=== PATIENT | female | born 1975 | race Two or more races ===

== ENCOUNTER 2020-12-13 03:45 | Emergency (ER) | payer BC ==
[~2020-12-13] VITALS: Ht 162.6 cm; Wt 90.9 kg
[2020-12-13] MEDS ORDERED: HYDR-2761 PO (04:29)
[2020-12-13] MEDS ORDERED: HYDROcodone/APAP 5/325MG 1 TAB TABLET PO ONE (04:30)
--- NOTE | 2020-12-13 04:30 | PHYS DOC ---
Past Medical History Past Medical History: No Pertinent History Past Surgical History: , Tubal ligation Smoking Status: Current Some Day Smoker Alcohol Use: None Drug Use: None General Adult EDM: Chief Complaint: LOWER EXT PAIN HPI: HPI: 45-year-old female presents with report of right lateral ankle pain that has been ongoing for the past 2 weeks. Patient reports she was working standing for approximately 8 hours tonight with significant increased in pain. Patient reports she thinks she "sprained her ankle" previously and symptoms have not improved because she has continued to work on it. Patient does report taking 400 mg of Advil at midnight without significant improvement. Patient reports she is able to bear weight. Denies numbness or tingling. Denies other injury. Review of Systems: Review of Systems: Constitutional: Denies fever or chills Eyes: Denies redness or eye pain HENT: Denies nasal congestion or sore throat Respiratory: Denies cough or shortness of breath Cardiovascular: Denies chest pain or palpitations GI: Denies abdominal pain, nausea, or vomiting : Denies dysuria or hematuria Musculoskeletal: Denies back pain; reports right lateral ankle pain and swelling Integument: Denies rash or skin lesions Neurologic: Denies headache, focal weakness or sensory changes Complete systems were reviewed and found to be within normal limits, except as documented in this note. Heart Score: C/O Chest Pain: N/A Current Medications: Current Medications Medications (Trade) Dose Ordered Sig/[facility] Start Time Stop Time Status Last Admin Dose Admin Acetaminophen/ Hydrocodone Bitart (Lortab 5/325) 1 tab 1X ONCE 12/13/20 04:30 12/13/20 04:31 Allergies: Allergies: Allergies Coded Allergies Type Severity Reaction Last Updated Verified No Known Drug Allergies 12/13/20 No Physical Exam: PE: Constitutional: Well developed, well nourished, no acute distress, non-toxic appearance HENT: Normocephalic, atraumatic Eyes: Conjunctiva normal, no discharge Neck: Normal range of motion, supple Lungs & Thorax: No respiratory distress, equal chest rise and fall Skin: Warm, dry, no erythema, no rash Extremities: Right lateral malleolar tenderness, right ankle anterior drawer negative, DP and PT +2 on right, mild lateral ankle edema, no deformity Neurologic: Alert and oriented X 3, no focal deficits noted Psychologic: Affect normal, judgment normal Current Patient Data: Labs: Laboratory Tests Test 12/13/20 04:05 POC Urine HCG, Qualitative Hcg negative (Negative) Vital Signs: Vital Signs Date Time Temp Pulse Resp B/P (MAP) Pulse Ox O2 Delivery O2 Flow Rate FiO2 12/13/20 04:08 98.6 74 16 162/77 (105) 99 Room Air 98.6 EKG: EKG: [] Radiology/Procedures: Radiology/Procedures: PROCEDURE: ANKLE RIGHT 3V XR EXAM OF ANKLE_RIGHT 3VIEWS History: Reason: pain/swelling to lateral malleolus / Spl. Instructions: / History: Technique: 3 views right ankle Comparison: None. Findings: Lateral ankle soft tissue swelling. Ill-defined calcifications inferior to the lateral malleolus. Symmetric ankle mortise. Plantar calcaneal spur. Mild ankle DJD. Midfoot partially imaged DJD. Impression: 1. Ill-defined calcifications inferior to the lateral malleolus, may relate to age indeterminate avulsion fracture. 2. Lateral ankle soft tissue swelling. Electronically signed by: Jose Carrillo DO (12/13/2020 4:41 AM) [facility] Course & Med Decision Making: Course & Med Decision Making Pertinent Imaging studies reviewed. (See chart for details) Patient presents with 2-week history of right ankle pain status post sprain. Patient reports she was up working today on her feet with worsening discomfort. No deformity noted. Limb neurovascularly intact. Ice applied. Pain addressed. X-ray without acute fracture or dislocation. Cannot fully exclude old avulsion fracture given some calcifications noted. Michael wrap and crutches provided. Patient stable for discharge with outpatient follow-up with PCP/orthopedics. Orthopedic referral provided. Discussed findings and plan with patient and family, who acknowledge understanding and agreement. Uriel Disclaimer: Uriel Disclaimer: This electronic medical record was generated, in whole or in part, using a voice recognition dictation system. Splinting Splinting : Location: Right ankle Pre-Made Type: MICHAEL bandage Pre-Proc Neuro Vasc Exam: normal Post-Proc Neuro Vasc Exam: normal, unchanged from pre-exam Departure Departure Impression: Primary Impression: Right ankle sprain Qualified Codes: S93.401A - Sprain of unspecified ligament of right ankle, initial encounter Disposition: HOME / SELF CARE / HOMELESS Condition: STABLE Referrals: PEÑA ENAMORADO DO Patient Instructions: Ankle Sprain, [id number], Crutch Use, [id number], Elastic Bandage and RICE Additional Instructions: Ice area of discomfort 20 minutes on then leave off next 20 minutes. Repeat several times daily for the next few days. May also take [id number] ibuprofen in addition to prescribed pain medication. Scripts Hydrocodone Bit/Acetaminophen (HYDROCODONE-APAP 5-325 ) 1 Tab Tablet 0.5-1 TAB PO PRN Q6HRS PRN for PAIN, #10 TAB 0 Refills Prov: TUNG GU DO 12/13/20 TUNG GU DO Dec 13, 2020 04:30
[2020-12-13 04:31] VITALS: BP 145/72
--- NOTE | 2020-12-13 04:44 | RAD ---
XR EXAM OF ANKLE_RIGHT 3VIEWS History: Reason: pain/swelling to lateral malleolus / Spl. Instructions: / History: Technique: 3 views right ankle Comparison: None. Findings: Lateral ankle soft tissue swelling. Ill-defined calcifications inferior to the lateral malleolus. Sym metric ankle mortise. Plantar calcaneal spur. Mild ankle DJD. Midfoot partially imaged DJD. Impression: 1. Ill-defined calcifications inferior to the lateral malleolus, may relate to age indeterminate avu lsion fracture. 2. Lateral ankle soft tissue swelling. Electronically signed by: Jose Carrillo DO (12/13/2020 4:41 AM) [facility]
== END 2020-12-13 04:55 | disposition home or self-care (01) ==
LOC: ER 03:45
DX: S93.401A Sprain of unspecified ligament of right ankle, initial encounter (principal); F17.200 Nicotine dependence, unspecified, uncomplicated; X50.9XXA Other and unspecified overexertion or strenuous movements or postures, initial encounter; Y93.89 Activity, other specified; Y92.89 Other specified places as the place of occurrence of the external cause; Y99.8 Other external cause status
CPT/HCPCS: 73610; 81025; 99283